=== PATIENT | female | born 1975 | race Two or more races ===

== ENCOUNTER 2020-01-17 21:32 | Emergency (ER) | payer SELFPAY ==
[~2020-01-17] VITALS: Ht 162.6 cm; Wt 80.7 kg
[2020-01-17 22:00] VITALS: BP 134/96
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
--- NOTE | 2020-01-17 22:10 | NUR ---
ED Nurse Note: Patient denies LOC or head trauma.
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
--- NOTE | 2020-01-17 22:51 | Diagnostic Imaging Report ---
EXAM: CT Head Without Intravenous Contrast CLINICAL HISTORY: PAIN TECHNIQUE: Axial computed tomography images of the head/brain without intravenous contrast. CTDI is 53.4 mGy and DLP is 938.7 mGy-cm. One or more of the following dose reduction techniques were used: automated exposure control, adjustment of the mA and/or kV according to patient size, use of iterative reconstruction technique. COMPARISON: No relevant prior studies available. FINDINGS: Brain: No hemorrhage. No edema. Ventricles: No ventriculomegaly. Bones/joints: No acute fracture. Soft tissues: Unremarkable. Sinuses: No acute sinusitis. Mastoid air cells: No mastoid effusion. IMPRESSION: No acute intracranial process.
--- NOTE | 2020-01-17 22:58 | Diagnostic Imaging Report ---
EXAM: CT Maxillofacial Without Intravenous Contrast CLINICAL HISTORY: PAIN TECHNIQUE: Axial computed tomography images of the face without intravenous contrast. CTDI is 15.3 mGy and DLP is 329.2 mGy-cm. One or more of the following dose reduction techniques were used: automated exposure control, adjustment of the mA and/or kV according to patient size, use of iterative reconstruction technique. COMPARISON: No relevant prior studies available. FINDINGS: Bones/joints: No acute fracture. Soft tissues: Soft tissue swelling Orbits: Unremarkable. Sinuses: No acute sinusitis. IMPRESSION: No acute fracture.
[2020-01-17] MEDS ORDERED: HYDROcodone/Acetamin 5/325 tab ORAL ONE (23:15)
[2020-01-17] MEDS ORDERED: Ketorolac 60mg Inj IM ONE (23:15)
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
[2020-01-18] MEDS ORDERED: IBUPROFEN600 M1 ORAL (00:13)
[2020-01-18] MEDS ORDERED: VALIUM5 MG ORAL (00:13)
[2020-01-18 00:20] VITALS: BP 128/70
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
== END 2020-01-18 00:20 | disposition home or self-care (01) ==
LOC: EDBD 21:32 → EMR 22:10
DX: M54.5 Low back pain (principal); S05.11XA Contusion of eyeball and orbital tissues, right eye, initial encounter; Y04.2XXA Assault by strike against or bumped into by another person, initial encounter; Y92.9 Unspecified place or not applicable; M79.605 Pain in left leg; W10.9XXA Fall (on) (from) unspecified stairs and steps, initial encounter
CPT/HCPCS: 70450; 70486; 72020; 96372; 99284